=== PATIENT | female | born 1945 | race Caucasian/White ===

== ENCOUNTER → 2016-11-18 | Outpatient (CLI) | payer OTHER ==
[~2016-11-18] MED LIST: APRESOLINE; CRESTOR; KEFLEX500 MG PO; LANTUS100 U/ML; LASIX; LOTREL 10/20 MG1 CAP; NOVOLOG100 U/ML; PHOSLO667 MG; PRILOSEC; TOPROL XL
--- NOTE | ~2016-11-18 | MY11 ---
[facility] A Service of [facility] RADIOLOGY TEXT RESULTS PATIENT: AYUSH ACE LOCATION: [facility] : 41 UNIT #: [id number] AGE: [address]: Piedad Sharma MD SEX: F ORDER DR: [id number] [facility] [address] [place], [place] [address] [id number] O MR#: [id number] Acc #: [id number] NAME: AYUSH ACE : 1945 SEX: F STUDY DATE/TIME: 11/18/2016 15:03 UNIT: [facility] ROOM: STUDY DESCRIPTION: MY Mammogram Screening Dig Jorge Luis Attending Physician: Piedad Sharma M.D. Ordering Physician: Piedad Sharma M.D. Primary Care Physician: Piedad Sharma M.D. MEDICAL IMAGING REPORT This report is preliminary unless electronic signature is present EXAM Screening mammogram, 11/18 INDICATIONS 71-year-old with no personal history but a positive family history of breast cancer in her mother. No current complaints. FINDINGS Routine digital screening views of both breasts were obtained. Study is reviewed with an FDA-approved CAD device. Comparison made with 11/13/2015, 10/26/2014, and 08/02/2013. Breast parenchyma shows scattered fibroglandular densities. No new masses or suspicious microcalcifications are seen. Benign calcifications are again identified in both breasts. IMPRESSION Benign mammogram. Routine screen in 1 year is recommended. Patients over the age of 40 are entered into a reminder system with target due date for the next mammogram. A result letter will also be sent to the patient. BIRADS: 2 Benign Finding Dictated by... Tonny Sanches Jr., M.D. THIS IS AN ELECTRONICALLY VERIFIED REPORT Tonny Sanches Jr., M.D. at 11/19/2016 10:17 AM ANNEK/bry [facility] A Service of [facility] RADIOLOGY TEXT RESULTS PATIENT: AYUSH ACE LOCATION: [facility] #: [id number] : 41 UNIT #: [id number] AGE: [address]: Piedad Sharma MD SEX: F ORDER DR: TD: 11/18/2016 21:39 JOB #: [id number] MEDICAL IMAGING REPORT Page 1 of 1 COPY
== END | disposition home or self-care (01) ==
LOC: CWCC 14:30
DX: Z12.31 Encounter for screening mammogram for malignant neoplasm of breast (principal); Z80.3 Family history of malignant neoplasm of breast
CPT/HCPCS: G0202